=== PATIENT | female | born 1970 | race Caucasian/White ===

== ENCOUNTER 2016-12-25 04:18 | Observation (INO) | payer MEDICAID ==
[~2016-12-25] VITALS: Ht 170.2 cm; Wt 90.0 kg
[2016-12-25] MEDS ORDERED: METF500T4 PO (05:00)
[2016-12-25] MEDS ORDERED: GLYB5TAB3 PO (05:01)
[2016-12-25] MEDS ORDERED: GABA300C PO (05:01)
[2016-12-25] MEDS ORDERED: HYDR-882 PO (05:02)
[2016-12-25] MEDS ORDERED: KETOROLAC 30 MG/1 ML ONE (05:21)
[2016-12-25 05:29] LABS: HEMATOCRIT 43.7 % (34.6-47.8); HEMOGLOBIN 15.2 g/dL (11.7-16.4); WHITE BLOOD COUNT 9.2 x10^3/uL (3.4-10)
[2016-12-25] MEDS ORDERED: KETOROLAC 30 MG/1 ML IVPush ONE ×2 (05:30→09:30)
[2016-12-25 05:41] LABS: BLOOD UREA NITROGEN 16 mg/dL (7-18)
[2016-12-25 05:46] LABS: ASPARTATE AMINO TRANSFERASE 9 U/L (15-37)
[2016-12-25 05:48] LABS: IS PT STATUS REG ER OR PRE ER? YES
[2016-12-25] MEDS ORDERED: HEPARIN 25,000 UNITS/500ML PMX 500 ML ONE (06:18)
[2016-12-25] MEDS ORDERED: HEPARIN 5,000 UNITS/ML, 1ML ONE ×2 (06:18→07:03)
[2016-12-25] MEDS ORDERED: HEPARIN 25,000 UNITS/500ML PMX 500 ML IV PRN ×2 (06:30→07:00)
[2016-12-25] MEDS ORDERED: HEPARIN 5,000 UNITS/ML, 1ML IV ONE (06:30)
[2016-12-25] MEDS ORDERED: HEPARIN 5,000 UNITS/ML, 1ML IV PRN (06:30)
[2016-12-25] MEDS ORDERED: ONDANSETRON 2MG/ML, 2ML IVPush ONE (07:00)
[2016-12-25] MEDS ORDERED: morphine SULFATE 10 MG/ML, 1ML IVPush ONE (07:00)
[2016-12-25] MEDS ORDERED: SODIUM CHLORIDE 0.9% 1,000 ML IV SCH (07:44)
[2016-12-25] MEDS ORDERED: ENALAPRILAT 1.25 MG/ML, 2ML IVPush PRN (08:00)
[2016-12-25] MEDS ORDERED: DIPHENHYDRAMINE 25 MG CAPSULE PO PRN (08:00)
[2016-12-25] MEDS ORDERED: ONDANSETRON ODT 4 MG PO PRN (08:00)
[2016-12-25] MEDS ORDERED: ONDANSETRON 2MG/ML, 2ML IVPush PRN (08:00)
[2016-12-25] MEDS ORDERED: ACETAMINOPHEN 325 MG TABLET PO PRN (08:00)
[2016-12-25] MEDS ORDERED: DOCUSATE 100 MG CAPSULE PO PRN (08:00)
[2016-12-25] MEDS ORDERED: LABETALOL 5MG/ML, 20ML IVPush PRN (08:00)
[2016-12-25 08:09] VITALS: BP 113/71
[2016-12-25] MEDS ORDERED: SENNA/DOCUSATE TABLET PO SCH (09:00)
[2016-12-25] MEDS ORDERED: GABAPENTIN 300 MG CAPSULE PO SCH (09:00)
[2016-12-25] MEDS ORDERED: ASPIRIN 325 MG TABLET PO SCH (09:30)
[2016-12-25 09:51] LABS: IS PT STATUS REG ER OR PRE ER? NO
[2016-12-25] MEDS ORDERED: REGADENOSON 0.4 MG/5 ML SYRINGE ONE (10:34)
[2016-12-25] MEDS ORDERED: INSULIN ASPART 100 UNITS/ML, PEN SQ-INSULIN SCH (11:00)
[2016-12-25] MEDS ORDERED: IBUP-1222 PO (13:37)
== END 2016-12-25 14:41 | disposition home or self-care (01) ==
LOC: ED 06:32 → INTOOBSV 06:33 → EDIP 06:33 → ED 06:54 → 5SO 08:08
PROVIDERS: ADMIT Internal Medicine; ATTEND Internal Medicine
DX: I21.4 Non-ST elevation (NSTEMI) myocardial infarction (principal); R79.89 Other specified abnormal findings of blood chemistry; F17.210 Nicotine dependence, cigarettes, uncomplicated; E11.65 Type 2 diabetes mellitus with hyperglycemia; E66.9 Obesity, unspecified; Z82.49 Family history of ischemic heart disease and other diseases of the circulatory system
CPT/HCPCS: 36415; 71010; 78452; 80053; 82962; 83036; 83735; 83880; 84100; 84439; 84443; 84484; 85025; 85520; 85610; 85730; 93005; 93017; 93306; 96361; 96374; 96375; 96376; 99291; A9502; C9898; G0378; J1644; J1885; J2785; J7030; J1815

== ENCOUNTER 2017-01-31 14:32 | Inpatient (IN) | payer MEDICAID ==
[~2017-01-31] VITALS: Ht 170.2 cm; Wt 84.9 kg
[~2017-01-31 14:32] MED LIST: GABA300C PO; GLYB5TAB3 PO; HYDR-882 PO; IBUP-1222 PO; METF500T4 PO
[2017-01-31] MEDS ORDERED: FENTANYL PF 100 MCG/2ML ONE ×2 (14:45→16:15)
[2017-01-31] MEDS ORDERED: MIDAZOLAM 1 MG/ML, 5ML ONE ×2 (14:45→16:15)
[2017-01-31] MEDS ORDERED: BIVALIRUDIN 250 MG ONE ×2 (14:46→15:50)
[2017-01-31] MEDS ORDERED: LIDOCAINE 2%, 20ML ONE (14:46)
[2017-01-31] MEDS ORDERED: TICAGRELOR 90 MG TABLET ONE (14:46)
[2017-01-31] MEDS ORDERED: VERAPAMIL 2.5 MG/ML, 2ML ONE (14:46)
[2017-01-31] MEDS ORDERED: BISACODYL 5 MG EC TABLET PO PRN (15:00)
[2017-01-31] MEDS ORDERED: BISACODYL 10 MG SUPP PR PRN (15:00)
[2017-01-31] MEDS ORDERED: NITROGLYCERIN 0.4 MG BOTTLE (25 TABS) SL PRN (15:00)
[2017-01-31] MEDS ORDERED: ZOLPIDEM 5MG TABLET PO PRN (15:00)
[2017-01-31] MEDS ORDERED: ONDANSETRON 2MG/ML, 2ML IVPush PRN (15:00)
[2017-01-31] MEDS ORDERED: NITROGLYCERIN 0.4 MG/SPRAY SL PRN (15:00)
[2017-01-31] MEDS ORDERED: ASPI-496 PO (15:02)
[2017-01-31] MEDS: SODIUM CHLORIDE 0.9% 1,000 ML IV SCH ×2 (16:41→21:09)
[2017-01-31 16:42] VITALS: BP 124/72
[2017-01-31] MEDS: morphine SULFATE 10 MG/ML, 1ML IVPush PRN ×2 (17:05→20:15)
[2017-01-31] MEDS: INSULIN ASPART 100 UNITS/ML, PEN SQ-INSULIN SCH ×2 (17:10→20:18)
[2017-01-31 17:58] LABS: HEMATOCRIT 48.2 % (34.6-47.8); HEMOGLOBIN 16.5 g/dL (11.7-16.4); WHITE BLOOD COUNT 11.4 x10^3/uL (3.4-10)
[2017-01-31 18:12] LABS: BLOOD UREA NITROGEN 15 mg/dL (7-18)
[2017-01-31] MEDS: METOPROLOL TARTRATE 25 MG TABLET PO SCH (18:17)
[2017-01-31 18:28] LABS: IS PT STATUS REG ER OR PRE ER? NO
[2017-01-31] MEDS: ATORVASTATIN 80 MG TABLET PO SCH (20:15)
[2017-01-31] MEDS: TICAGRELOR 90 MG TABLET PO SCH (20:15)
[2017-01-31] MEDS ORDERED: ATORVASTATIN 80 MG TABLET PO SCH (21:00)
[2017-01-31 21:26] LABS: IS PT STATUS REG ER OR PRE ER? NO
[2017-01-31] MEDS ORDERED: KETOROLAC 30 MG/1 ML IVPush SCH (21:30)
[2017-02-01 04:33] LABS: HEMATOCRIT 42.7 % (34.6-47.8); HEMOGLOBIN 14.7 g/dL (11.7-16.4)
[2017-02-01 04:52] VITALS: BP 92/61
[2017-02-01 05:37] LABS: IS PT STATUS REG ER OR PRE ER? NO
[2017-02-01 08:13] LABS: BLOOD UREA NITROGEN 14 mg/dL (7-18)
[2017-02-01] MEDS ORDERED: ASPIRIN 81 MG TABLET EC PO SCH (09:00)
[2017-02-01] MEDS: INSULIN ASPART 100 UNITS/ML, PEN SQ-INSULIN SCH ×4 (09:22→21:05)
[2017-02-01] MEDS: METOPROLOL TARTRATE 25 MG TABLET PO SCH ×2 (09:23→18:29)
[2017-02-01] MEDS: TICAGRELOR 90 MG TABLET PO SCH ×2 (09:23→21:05)
[2017-02-01] MEDS: LISINOPRIL 5 MG TABLET PO SCH (09:24)
[2017-02-01] MEDS: ASPIRIN 81 MG TABLET EC PO SCH (09:24)
[2017-02-01] MEDS: ISOSORBIDE MONONITRATE ER 30 MG TABLET PO SCH (09:25)
[2017-02-01 13:06] VITALS: BP 93/61
[2017-02-01] MEDS: ACETAMINOPHEN 325 MG TABLET PO PRN (16:26)
[2017-02-01 18:31] VITALS: BP 107/69
[2017-02-01 19:05] VITALS: BP 104/69
[2017-02-01] MEDS: morphine SULFATE 10 MG/ML, 1ML IVPush PRN (21:04)
[2017-02-01] MEDS: ATORVASTATIN 80 MG TABLET PO SCH (21:05)
[2017-02-02 00:36] VITALS: BP 91/56
[2017-02-02 05:52] VITALS: BP 106/69
[2017-02-02] MEDS: METOPROLOL TARTRATE 25 MG TABLET PO SCH (05:52)
[2017-02-02] MEDS: INSULIN ASPART 100 UNITS/ML, PEN SQ-INSULIN SCH ×4 (08:16→22:08)
[2017-02-02 08:54] VITALS: BP 110/73
[2017-02-02] MEDS: TICAGRELOR 90 MG TABLET PO SCH ×2 (10:00→22:02)
[2017-02-02] MEDS: ASPIRIN 81 MG TABLET EC PO SCH (10:00)
[2017-02-02] MEDS: LISINOPRIL 5 MG TABLET PO SCH (10:02)
[2017-02-02] MEDS: BACLOFEN 10 MG TABLET PO PRN ×2 (10:02→22:01)
[2017-02-02] MEDS: ISOSORBIDE MONONITRATE ER 30 MG TABLET PO SCH (10:03)
[2017-02-02] MEDS: GlyBURIDE 5 MG TABLET PO SCH (12:46)
[2017-02-02 13:25] VITALS: BP 96/59
[2017-02-02] MEDS: ACETAMINOPHEN 325 MG TABLET PO PRN ×2 (14:23→14:24)
[2017-02-02 18:00] VITALS: BP 100/65
[2017-02-02] MEDS: CARVEDILOL 6.25 MG TABLET PO SCH (18:03)
[2017-02-02 18:31] VITALS: BP 98/62
[2017-02-02] MEDS: ATORVASTATIN 80 MG TABLET PO SCH (22:02)
[2017-02-03 00:03] VITALS: BP 97/65
[2017-02-03] MEDS: BACLOFEN 10 MG TABLET PO PRN (05:01)
[2017-02-03 05:48] LABS: HEMATOCRIT 43.4 % (34.6-47.8); HEMOGLOBIN 14.8 g/dL (11.7-16.4); WHITE BLOOD COUNT 8.8 x10^3/uL (3.4-10)
[2017-02-03 06:06] LABS: BLOOD UREA NITROGEN 17 mg/dL (7-18)
[2017-02-03 06:10] VITALS: BP 126/84
[2017-02-03] MEDS: CARVEDILOL 6.25 MG TABLET PO SCH (06:11)
[2017-02-03] MEDS: ACETAMINOPHEN 325 MG TABLET PO PRN (10:02)
[2017-02-03] MEDS: INSULIN ASPART 100 UNITS/ML, PEN SQ-INSULIN SCH (10:02)
[2017-02-03] MEDS: ASPIRIN 81 MG TABLET EC PO SCH (10:03)
[2017-02-03] MEDS: TICAGRELOR 90 MG TABLET PO SCH (10:03)
[2017-02-03] MEDS: LISINOPRIL 5 MG TABLET PO SCH (10:03)
[2017-02-03] MEDS: GlyBURIDE 5 MG TABLET PO SCH (10:03)
[2017-02-03] MEDS: ISOSORBIDE MONONITRATE ER 30 MG TABLET PO SCH (10:03)
[2017-02-03] MEDS ORDERED: ATOR-2 PO (10:44)
[2017-02-03] MEDS ORDERED: ASPI-621 PO (10:44)
[2017-02-03] MEDS ORDERED: ISOS30TA8 PO (10:44)
[2017-02-03] MEDS ORDERED: LISI5TAB7 PO (10:44)
[2017-02-03] MEDS ORDERED: TICA90TA PO (10:44)
[2017-02-03] MEDS ORDERED: CARV6.2512 PO (10:44)
== END 2017-02-03 12:52 | disposition home or self-care (01) | DRG 246 ==
LOC: ED 14:32 → EDIP 14:33 → ED 15:21 → CCU 16:40 → 5SO 02-01 11:35 → DCLOUNGE 02-03 11:55
PROVIDERS: ADMIT Internal Medicine Cardiovascular Disease; ATTEND Internal Medicine Cardiovascular Disease
PROC: 0270376 Dilation of Coronary Artery, One Artery, Bifurcation, with Four or More Drug-eluting Intraluminal Devices, Percutaneous Approach (ICD-10-PCS; principal; 2017-01-31)
PROC: 4A023N7 Measurement of Cardiac Sampling and Pressure, Left Heart, Percutaneous Approach (ICD-10-PCS; 2017-01-31)
PROC: B2111ZZ Fluoroscopy of Multiple Coronary Arteries using Low Osmolar Contrast (ICD-10-PCS; 2017-01-31)
PROC: B2151ZZ Fluoroscopy of Left Heart using Low Osmolar Contrast (ICD-10-PCS; 2017-01-31)
DX: I21.09 ST elevation (STEMI) myocardial infarction involving other coronary artery of anterior wall (principal); I50.31 Acute diastolic (congestive) heart failure; E11.65 Type 2 diabetes mellitus with hyperglycemia; E66.01 Morbid (severe) obesity due to excess calories; I45.10 Unspecified right bundle-branch block; D72.829 Elevated white blood cell count, unspecified; E78.5 Hyperlipidemia, unspecified; G89.29 Other chronic pain; I11.0 Hypertensive heart disease with heart failure; I25.10 Atherosclerotic heart disease of native coronary artery without angina pectoris; I25.5 Ischemic cardiomyopathy; Z72.0 Tobacco use; Z90.710 Acquired absence of both cervix and uterus; Z68.29 Body mass index [BMI] 29.0-29.9, adult
CPT/HCPCS: 36415; 80048; 80061; 82040; 82962; 83036; 83880; 84484; 85014; 85018; 85025; 87081; 93005; 93306; 93458; 93571; 93572; 99156; 99157; 99291; C1769; C1894; C9601; J0583; J1815; J1885; J2250; J3010; J3490; C1725; C1874; C1887; J2270; J7030; Q9967